=== PATIENT | male | born 1985 | race Caucasian/White ===

== ENCOUNTER 2019-10-13 17:30 | Outpatient (CLI) | payer OTHER | END 2019-10-13 17:31 | disposition home or self-care (01) | LOC: SLEEPLAB 17:30 | PROVIDERS: ATTEND Internal Medicine | DX: G47.33 Obstructive sleep apnea (adult) (pediatric) (principal); R06.83 Snoring; G47.00 Insomnia, unspecified | CPT/HCPCS: 95806 ==

== ENCOUNTER 2023-05-18 10:50 | Inpatient (IN) | payer OTHER ==
[2023-05-18] MEDS ORDERED: Ondansetron PF 4 MG/2 ML Vial ONE (11:56)
[2023-05-18] MEDS ORDERED: Morphine 4 MG/ML VIAL ONE (11:56)
[2023-05-18] MEDS ORDERED: Cefepime 2 GM VIAL ONE (11:56)
[2023-05-18 12:35] LABS: ALT (SGPT) 22 U/L (8-55); AST (SGOT) 16 U/L (5-34); Albumin 3.9 g/dL (3.5-5.0); Alkaline Phosphatase 89 U/L (40-110); Anion Gap 14 mmol/L (10-20); BUN (Urea Nitrogen) 15 mg/dL (8.9-20.6); Bilirubin, Total 0.5 mg/dL (0.2-1.2); CK (CPK) 47 U/L (30-200); Calc. Creatinine Clearance 0 mL/min (70-130); Calcium 9.3 mg/dL (7.8-10.44); Carbon Dioxide 24 mmol/L (22-29); Chloride 98 mmol/L (98-107); Estimated GFR 98; Globulin 3.6 g/dL (2.4-3.5); Glucose 150 mg/dL (70-105); Potassium 3.8 mmol/L (3.5-5.1); Protein, Total 7.5 g/dL (6.0-8.3); Sodium 132 mmol/L (136-145)
[2023-05-18 13:10] LABS: #Monocytes 1.1 thou/uL (0.11-0.59); #Neutrophils 12.1 thou/uL (1.40-6.50); %Basophils 0.3 % (0.0-1.0); %Eosinophils 0.2 % (0.0-10.0); %Lymphocytes 8.6 % (21.0-51.0); %Monocytes 7.7 % (0.0-10.0); %Neutrophils 82.7 % (42.0-75.0); Hemoglobin 15.2 g/dL (14.0-18.0); Mean Corpuscular HGB CONC 33.9 g/dL (32.0-36.0); Mean Corpuscular Hemoglobin 30.2 pg (27.0-31.0); Mean Corpuscular Volume 88.9 fl (78.0-98.0); Mean Platelet Volume 10.2 fL (7.4-10.4); Platelet Count 228 10x3/uL (130-400); RBC Distribution Width 12.5 % (11.5-14.5); Red Blood Cell (RBC) Count 5.04 mill/uL (4.70-6.10); White Blood Cell (WBC) Count 14.6 10x3/uL (4.8-10.8)
[2023-05-18] MEDS ORDERED: Vancomycin 1 GM/200 ML (FROZEN) BAG ONE (13:43)
[2023-05-18] MEDS ORDERED: Calcium Carbonate 500 MG ChewTAB PO PRN (15:28)
[2023-05-18] MEDS ORDERED: Ondansetron PF 4 MG/2 ML Vial IVP PRN (15:28)
[2023-05-18] MEDS ORDERED: Acetaminophen 325 MG TAB PO PRN (15:28)
[2023-05-18 16:49] VITALS: BMI 38.0
[2023-05-18] MEDS: HYDROcodone/Acetaminophen 5/325 mg Tablet PO PRN ×2 (17:07→21:02)
[2023-05-18] MEDS ORDERED: Vancomycin 1 GM in Premix Bag 1 BAG IVPB SCH ×2 (17:15→21:00)
[2023-05-18 18:50] LABS: INR-International Normal Ratio 1.1; PTT 37.5 sec (22.9-36.1); Prothrombin Time 14.6 sec (12.0-14.7)
[2023-05-18] MEDS: Famotidine/PF 20 mg/2ml Vial SLOW IVP SCH (20:04)
[2023-05-18] MEDS: Famotidine 20 MG TAB PO SCH (20:04)
[2023-05-18] MEDS: Cefepime 1 GM in Sodium Chloride 0.9% 100 ML IVPB SCH (20:04)
[2023-05-18] MEDS: Doxycycline 100 MG CAP PO SCH (20:12)
[2023-05-19] MEDS: VANCOMYCIN 1.25 GM/250 ML BAG 1.25 GM in Premix Bag 1 BAG IVPB SCH ×2 (02:27→14:26)
[2023-05-19 07:15] LABS: #Eosinphils 0.1 thou/uL (0.0-0.7); #Monocytes 1.4 thou/uL (0.11-0.59); #Neutrophils 8.6 thou/uL (1.40-6.50); %Basophils 0.3 % (0.0-1.0); %Eosinophils 0.8 % (0.0-10.0); %Monocytes 12.1 % (0.0-10.0); %Neutrophils 73.9 % (42.0-75.0); Hemoglobin 13.4 g/dL (14.0-18.0); Mean Corpuscular HGB CONC 33.5 g/dL (32.0-36.0); Mean Platelet Volume 10.2 fL (7.4-10.4); Platelet Count 242 10x3/uL (130-400); RBC Distribution Width 12.6 % (11.5-14.5); Red Blood Cell (RBC) Count 4.32 mill/uL (4.70-6.10); White Blood Cell (WBC) Count 11.6 10x3/uL (4.8-10.8)
[2023-05-19 07:36] LABS: Anion Gap 12 mmol/L (10-20); BUN (Urea Nitrogen) 13 mg/dL (8.9-20.6); Calc. Creatinine Clearance 209 mL/min (70-130); Carbon Dioxide 28 mmol/L (22-29); Chloride 100 mmol/L (98-107); Estimated GFR 114; Glucose 112 mg/dL (70-105); Sodium 136 mmol/L (136-145)
[2023-05-19 07:59] LABS: Mean Corpuscular Volume 92.6 fl (78.0-98.0)
[2023-05-19] MEDS: Doxycycline 100 MG CAP PO SCH ×2 (09:02→20:34)
[2023-05-19] MEDS: Famotidine 20 MG TAB PO SCH ×2 (09:02→20:35)
[2023-05-19] MEDS: Cefepime 1 GM in Sodium Chloride 0.9% 100 ML IVPB SCH ×2 (09:02→20:34)
[2023-05-19] MEDS: Famotidine/PF 20 mg/2ml Vial SLOW IVP SCH ×2 (09:03→20:34)
[2023-05-19] MEDS: HYDROcodone/Acetaminophen 5/325 mg Tablet PO PRN ×2 (12:50→16:55)
[2023-05-20 01:38] LABS: Vancomycin, Trough 6.9 ug/mL
[2023-05-20] MEDS: Vancomycin 1.5 GRAM/300 ML BAG 1.5 GM in Premix Bag 1 BAG IVPB SCH ×3 (02:09→17:38)
[2023-05-20] MEDS: Morphine 2 MG/ML VIAL SLOW IVP PRN ×3 (02:15→19:14)
[2023-05-20] MEDS: Cefepime 1 GM in Sodium Chloride 0.9% 100 ML IVPB SCH ×2 (07:56→21:43)
[2023-05-20] MEDS: Doxycycline 100 MG CAP PO SCH ×2 (07:58→21:44)
[2023-05-20] MEDS: Famotidine 20 MG TAB PO SCH ×2 (07:58→21:44)
[2023-05-20] MEDS: Famotidine/PF 20 mg/2ml Vial SLOW IVP SCH ×2 (07:58→21:44)
[2023-05-20] MEDS: HYDROcodone/Acetaminophen 5/325 mg Tablet PO PRN ×2 (08:08→21:55)
[2023-05-20 09:06] LABS: #Basophils 0.1 thou/uL (0.0-0.2); #Eosinphils 0.1 thou/uL (0.0-0.7); #Monocytes 0.9 thou/uL (0.11-0.59); #Neutrophils 8.1 thou/uL (1.40-6.50); %Basophils 0.6 % (0.0-1.0); %Eosinophils 1.2 % (0.0-10.0); %Lymphocytes 14.5 % (21.0-51.0); %Monocytes 8.5 % (0.0-10.0); %Neutrophils 74.3 % (42.0-75.0); Hemoglobin 13.6 g/dL (14.0-18.0); Mean Corpuscular HGB CONC 33.5 g/dL (32.0-36.0); Mean Corpuscular Hemoglobin 30.6 pg (27.0-31.0); Mean Corpuscular Volume 91.2 fl (78.0-98.0); Mean Platelet Volume 9.8 fL (7.4-10.4); Platelet Count 268 10x3/uL (130-400); RBC Distribution Width 12.8 % (11.5-14.5); Red Blood Cell (RBC) Count 4.45 mill/uL (4.70-6.10); White Blood Cell (WBC) Count 10.9 10x3/uL (4.8-10.8)
[2023-05-20 09:07] LABS: Hemoglobin A1c 5.2 % (4.0-6.0)
[2023-05-20 09:23] LABS: Anion Gap 15 mmol/L (10-20); BUN (Urea Nitrogen) 9 mg/dL (8.9-20.6); Calc. Creatinine Clearance 265 mL/min (70-130); Carbon Dioxide 24 mmol/L (22-29); Chloride 101 mmol/L (98-107); Estimated GFR 122; Glucose 145 mg/dL (70-105); Potassium 3.6 mmol/L (3.5-5.1); Sodium 136 mmol/L (136-145)
[2023-05-20] MEDS: Polyethylene Glycol 3350 17 GM Packet PO SCH (10:32)
[2023-05-20] MEDS: Senokot S 8.6-50 MG TAB PO SCH ×2 (10:32→21:44)
[2023-05-21 01:22] LABS: Vancomycin, Trough 14.7 ug/mL
[2023-05-21] MEDS: Morphine 2 MG/ML VIAL SLOW IVP PRN ×3 (06:25→21:09)
[2023-05-21] MEDS: Doxycycline 100 MG CAP PO SCH (08:49)
[2023-05-21] MEDS: Cefepime 1 GM in Sodium Chloride 0.9% 100 ML IVPB SCH ×2 (08:49→21:08)
[2023-05-21] MEDS: Famotidine/PF 20 mg/2ml Vial SLOW IVP SCH (08:50)
[2023-05-21] MEDS: Famotidine 20 MG TAB PO SCH (08:51)
[2023-05-21] MEDS: Senokot S 8.6-50 MG TAB PO SCH ×2 (08:51→21:09)
[2023-05-21] MEDS: Polyethylene Glycol 3350 17 GM Packet PO SCH (08:51)
[2023-05-21] MEDS: HYDROcodone/Acetaminophen 5/325 mg Tablet PO PRN ×2 (08:53→16:08)
[2023-05-21] MEDS ORDERED: Lidocaine 1% w/Epinephrine 1:100K 20 ML VIAL ONE ×2 (18:33→18:50)
[2023-05-21] MEDS ORDERED: Vancomycin HCl 1.25 GM in Sodium Chloride 0.9% 250 ML 250 ML IVPB SCH (21:00)
[2023-05-21] MEDS: Vancomycin 1.5 GRAM/300 ML BAG 1.5 GM in Premix Bag 1 BAG IVPB SCH (21:09)
[2023-05-22] MEDS: Vancomycin 1.5 GRAM/300 ML BAG 1.5 GM in Premix Bag 1 BAG IVPB SCH ×3 (03:50→21:13)
[2023-05-22] MEDS: Cefepime 1 GM in Sodium Chloride 0.9% 100 ML IVPB SCH ×2 (08:53→20:01)
[2023-05-22] MEDS: Polyethylene Glycol 3350 17 GM Packet PO SCH (08:57)
[2023-05-22] MEDS: Senokot S 8.6-50 MG TAB PO SCH ×2 (08:57→20:05)
[2023-05-22] MEDS: HYDROcodone/Acetaminophen 5/325 mg Tablet PO PRN ×2 (08:57→15:26)
[2023-05-22] MEDS: Morphine 2 MG/ML VIAL SLOW IVP PRN (20:00)
[2023-05-23] MEDS: Vancomycin 1.5 GRAM/300 ML BAG 1.5 GM in Premix Bag 1 BAG IVPB SCH ×3 (04:30→19:34)
[2023-05-23] MEDS: HYDROcodone/Acetaminophen 5/325 mg Tablet PO PRN ×3 (04:35→13:47)
[2023-05-23] MEDS: Cefepime 1 GM in Sodium Chloride 0.9% 100 ML IVPB SCH ×2 (08:29→21:42)
[2023-05-23] MEDS: Senokot S 8.6-50 MG TAB PO SCH ×2 (08:31→19:34)
[2023-05-23] MEDS: Polyethylene Glycol 3350 17 GM Packet PO SCH (08:31)
[2023-05-23] MEDS ORDERED: Lidocaine 1% w/Epinephrine 1:100K 20 ML VIAL ONE (10:30)
[2023-05-23] MEDS: Morphine 2 MG/ML VIAL SLOW IVP PRN (19:29)
[2023-05-24] MEDS: Vancomycin 1.5 GRAM/300 ML BAG 1.5 GM in Premix Bag 1 BAG IVPB SCH ×3 (04:29→20:57)
[2023-05-24] MEDS: Cefepime 1 GM in Sodium Chloride 0.9% 100 ML IVPB SCH ×2 (08:41→20:56)
[2023-05-24] MEDS: Senokot S 8.6-50 MG TAB PO SCH ×2 (08:43→20:57)
[2023-05-24] MEDS: Polyethylene Glycol 3350 17 GM Packet PO SCH (08:43)
[2023-05-24] MEDS: HYDROcodone/Acetaminophen 5/325 mg Tablet PO PRN (17:52)
[2023-05-25] MEDS: Vancomycin 1.5 GRAM/300 ML BAG 1.5 GM in Premix Bag 1 BAG IVPB SCH (04:54)
[2023-05-25 07:51] LABS: #Basophils 0.1 thou/uL (0.0-0.2); #Eosinphils 0.2 thou/uL (0.0-0.7); #Monocytes 0.9 thou/uL (0.11-0.59); #Neutrophils 6.5 thou/uL (1.40-6.50); %Basophils 0.6 % (0.0-1.0); %Eosinophils 2.1 % (0.0-10.0); %Lymphocytes 19.9 % (21.0-51.0); %Monocytes 8.8 % (0.0-10.0); %Neutrophils 64.4 % (42.0-75.0); Hemoglobin 13.4 g/dL (14.0-18.0); Mean Corpuscular HGB CONC 32.1 g/dL (32.0-36.0); Mean Corpuscular Hemoglobin 30.5 pg (27.0-31.0); Platelet Count 378 10x3/uL (130-400); RBC Distribution Width 12.7 % (11.5-14.5)
[2023-05-25 08:10] LABS: Anion Gap 13 mmol/L (10-20); BUN (Urea Nitrogen) 13 mg/dL (8.9-20.6); Calc. Creatinine Clearance 243 mL/min (70-130); Calcium 9.3 mg/dL (7.8-10.44); Carbon Dioxide 29 mmol/L (22-29); Chloride 100 mmol/L (98-107); Estimated GFR 119; Glucose 107 mg/dL (70-105); Potassium 4.7 mmol/L (3.5-5.1); Sodium 137 mmol/L (136-145)
[2023-05-25] MEDS: Senokot S 8.6-50 MG TAB PO SCH ×2 (09:42→20:51)
[2023-05-25] MEDS: Polyethylene Glycol 3350 17 GM Packet PO SCH (09:42)
[2023-05-25] MEDS ORDERED: Cephalexin 250 MG CAP PO SCH (12:00)
[2023-05-25] MEDS: Cefepime 1 GM in Sodium Chloride 0.9% 100 ML IVPB SCH (14:27)
[2023-05-25] MEDS: HYDROcodone/Acetaminophen 5/325 mg Tablet PO PRN (20:50)
[2023-05-25] MEDS: Linezolid 600 MG TAB PO SCH (20:51)
[2023-05-26] MEDS: Linezolid 600 MG TAB PO SCH (09:57)
[2023-05-26] MEDS: Polyethylene Glycol 3350 17 GM Packet PO SCH (09:59)
[2023-05-26] MEDS: Senokot S 8.6-50 MG TAB PO SCH (09:59)
[2023-05-26 11:52] VITALS: BP 153/103; TEMP 98.4
== END 2023-05-26 11:15 | disposition home or self-care (01) | DRG 872 ==
LOC: ERS 10:50 → T4-A 14:59 → OBSVTOIN 14:59
PROVIDERS: ADMIT Family Medicine; ATTEND Internal Medicine
PROC: 3E03329 Introduction of Other Anti-infective into Peripheral Vein, Percutaneous Approach (ICD-10-PCS; 2023-05-18)
PROC: 0J9P3ZZ Drainage of Left Lower Leg Subcutaneous Tissue and Fascia, Percutaneous Approach (ICD-10-PCS; principal; 2023-05-23)
DX: A41.9 Sepsis, unspecified organism (principal); L03.116 Cellulitis of left lower limb; L02.416 Cutaneous abscess of left lower limb; S80.12XA Contusion of left lower leg, initial encounter; E66.9 Obesity, unspecified; Z79.899 Other long term (current) drug therapy; Z68.38 Body mass index [BMI] 38.0-38.9, adult; V87.8XXA Person injured in other specified noncollision transport accidents involving motor vehicle (traffic), initial encounter; R73.03 Prediabetes
CPT/HCPCS: 36415; 76999; 80048; 80053; 80202; 82550; 83036; 83605; 85025; 85610; 85652; 85730; 86140; 87040; 87070; 87081; 87205; 96365; 96367; 96375; 97139; J0692; J0744; J1650; J2270; J2272; J2405; J3370; J3370-JW; J3490